=== PATIENT | male | born 1985 | race Caucasian/White ===

== ENCOUNTER 2016-09-07 12:03 | Emergency (ER) | payer SELFPAY ==
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
[2016-09-07] MEDS ORDERED: MORPHINE SULFATE 10 MG/ML INJ IV ONE ×2 (13:44→14:36)
[2016-09-07] MEDS ORDERED: DIPH/PERTUSS(ACELL)/TETANUS VAC/PF 0.5 ML SYR (>=10YO) IM ONE (13:44)
[2016-09-07 14:03] LABS: ABSOLUTE LYMPHOCYTES (AUTO) 2.1 10^3/uL (0.5-4.7); ABSOLUTE MONOCYTES (AUTO) 0.6 10^3/uL (0.1-1.4); ABSOLUTE NEUT (AUTO) 6.2 10^3/uL (1.7-8.2); BASOPHILS % (AUTO) 0.5 % (0-2); EOSINOPHILS % (AUTO) 0.6 % (0-6); HEMATOCRIT 46.5 % (37.9-51.0); HEMOGLOBIN 15.4 g/dL (13.5-17.0); HGB HCT DIFFERENCE -0.3; LYMPHOCYTES % (AUTO) 23.3 % (13-45); MEAN CORPUSCULAR HEMOGLOBIN 29.2 pg (27.0-33.4); MEAN CORPUSCULAR HGB CONC 33.2 g/dL (32.0-36.0); MEAN CORPUSCULAR VOLUME 88 fl (80-97); MONOCYTES % (AUTO) 6.4 % (3-13); RED BLOOD COUNT 5.29 10^6/uL (4.35-5.55); RED CELL DISTRIBUTION WIDTH 13.5 % (11.5-14.0); SEGMENTED NEUTROPHILS % (AUTO) 69.2 % (42-78)
[2016-09-07 14:25] LABS: ALANINE AMINOTRANSFERASE 24 U/L (21-72); ALBUMIN 3.9 g/dL (3.5-5.0); ALKALINE PHOSPHATASE 56 U/L (38-126); ANION GAP 8 (5-19); ASPARTATE AMINO TRANSFERASE 35 U/L (17-59); BILIRUBIN,TOTAL 1.2 mg/dL (0.2-1.3); BLOOD UREA NITROGEN 23 mg/dL (7-20); CALCIUM 9.5 mg/dL (8.4-10.2); CARBON DIOXIDE 29 mmol/L (22-30); CHLORIDE 100 mmol/L (98-107); GLUCOSE 98 mg/dL (75-110); POTASSIUM 4.7 mmol/L (3.6-5.0); SODIUM 137.3 mmol/L (137-145); TOTAL PROTEIN 6.4 g/dL (6.3-8.2)
[2016-09-07] MEDS ORDERED: HYDROMORPHONE HCL INJ/PF 2 MG/ML AMPULE IV ONE (15:38)
[2016-09-07 16:16] VITALS: BP 127/87
[2016-09-07] MEDS ORDERED: NICOTINE 14 MG/24 HR PATCH.TD24 TD ONE (16:26)
== END 2016-09-07 16:15 | disposition short-term general hospital (02) ==
LOC: ER 12:03
DX: S06.5X1A Traumatic subdural hemorrhage with loss of consciousness of 30 minutes or less, initial encounter (principal); S02.0XXA Fracture of vault of skull, initial encounter for closed fracture; S02.81XA Fracture of other specified skull and facial bones, right side, initial encounter for closed fracture; S02.40EA Zygomatic fracture, right side, initial encounter for closed fracture; Y04.2XXA Assault by strike against or bumped into by another person, initial encounter; R51 Headache; M54.2 Cervicalgia; F17.200 Nicotine dependence, unspecified, uncomplicated
CPT/HCPCS: 96376; 99291; 96374; 96375; 36415; 85025; 80053; 70450; 70486; 72125; L0120; J2270; J1170

== ENCOUNTER 2016-09-14 17:04 | Emergency (ER) | payer SELFPAY ==
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
--- NOTE | 2016-09-14 18:46 | ER Document Report ---
Doctor's Note Notes: 09/14/16 18:46 Radiologist called to state that the patient has a 5 mm subdural hematoma right parietal region. The nurse informed that the patient needs a bed
[2016-09-14] MEDS ORDERED: MORPHINE SULFATE 10 MG/ML INJ IV ONE (19:04)
[2016-09-14] MEDS ORDERED: NORMAL SALINE 1000 ML 1,000 ML IV PRN (19:04)
[2016-09-14] MEDS ORDERED: ONDANSETRON HCL INJ/PF 4 MG/2 ML SDV IV ONE (19:04)
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
[2016-09-14] MEDS ORDERED: HYDROMORPHONE HCL INJ/PF 2 MG/ML AMPULE IV ONE (20:06)
[2016-09-14] MEDS ORDERED: DIPHENHYDRAMINE HCL 50 MG/ML VIAL IV ONE (20:06)
[2016-09-14] MEDS ORDERED: DIAZEPAM INJ 10 MG/2 ML DISP.SYRIN IV ONE (21:19)
[2016-09-14] MEDS ORDERED: HYDROCODONE/ACETAMINOPHEN 5-325 MG 6 TAB/DSPK PO PRN (22:09)
[2016-09-14 22:24] VITALS: BP 110/77
== END 2016-09-14 22:34 | disposition home or self-care (01) ==
LOC: ER 17:04
DX: I62.00 Nontraumatic subdural hemorrhage, unspecified (principal); R51 Headache; F17.200 Nicotine dependence, unspecified, uncomplicated
CPT/HCPCS: 99284; 96361; 96374; 96375; 70450; J3360; J1200; J2270; J1170; J2405; J7030

== ENCOUNTER 2018-09-23 19:50 | Emergency (ER) | payer SELFPAY ==
[2018-09-23 20:22] VITALS: BP 128/78
--- NOTE | 2018-09-23 20:29 | RADIOLOGY REPORT (SQ) ---
EXAM DESCRIPTION: XR CHEST 2 VIEWS COMPLETED DATE/TME: 09/23/2018 00:00 CLINICAL HISTORY: 33 years, Male, cough/CP COMPARISON: None. NUMBER OF VIEWS: TECHNIQUE: LIMITATIONS: None. FINDINGS: No evidence of pulmonary infiltrate or pleural effusion. The heart and mediastinum are unremarkable. Pulmonary vascularity appears normal. IMPRESSION: Normal chest x-ray. copyright 2010 [employer]- All Rights Reserved
== END 2018-09-23 21:24 | disposition left against medical advice (07) ==
LOC: ER 19:50
DX: Z53.21 Procedure and treatment not carried out due to patient leaving prior to being seen by health care provider (principal); M79.10 Myalgia, unspecified site
CPT/HCPCS: 71046; 99283

== ENCOUNTER 2018-09-25 16:50 | Emergency (ER) | payer SELFPAY ==
[2018-09-25 16:59] VITALS: BP 128/89
[2018-09-25] MEDS ORDERED: KETOROLAC TROMETHAMINE 60 MG/2 ML SDV IM ONE (17:04)
--- NOTE | 2018-09-25 17:20 | ER Document Report ---
ED General - General Chief Complaint: Chest Wall Pain Stated Complaint: BACK PAIN Time Seen by Provider: 09/25/18 17:01 TRAVEL OUTSIDE OF THE [place] IN LAST 30 DAYS: No - HPI Patient complains to provider of: Left-sided chest wall pain 1 week Notes: Patient coming in for left-sided chest wall pain for 1 week patient denies any medical issues denies any trauma patient otherwise was seen earlier in the week however had to leave before his results could be given to him. Patient states no cough no recent travel otherwise resting healthy upon my evaluation - Related Data Allergies/Adverse Reactions: No Known Allergies Allergy (Verified 09/07/16 12:45) Past Medical History - Social History Smoking Status: Current Every Day Smoker Chew tobacco use (# tins/day): No Frequency of alcohol use: Heavy Drug Abuse: None Family History: Reviewed & Not Pertinent, Malignancy Patient has suicidal ideation: No Patient has homicidal ideation: No Renal/ Medical History: Denies: Hx Peritoneal Dialysis - Immunizations Hx Diphtheria, Pertussis, Tetanus Vaccination: Yes - 2 years ago Review of Systems - Review of Systems Constitutional: No symptoms reported EENT: No symptoms reported Cardiovascular: No symptoms reported Respiratory: Cough Gastrointestinal: No symptoms reported Genitourinary: No symptoms reported Male Genitourinary: No symptoms reported Musculoskeletal: No symptoms reported Skin: No symptoms reported Hematologic/Lymphatic: No symptoms reported Neurological/Psychological: No symptoms reported -: Yes All other systems reviewed and negative Physical Exam - Vital signs Vitals: Temp Pulse Resp BP Pulse Ox 98.1 F 72 16 128/89 H 97 09/25/18 16:58 09/25/18 16:58 09/25/18 16:58 09/25/18 16:58 09/25/18 16:58 Interpretation: Normal - General General appearance: Appears well, Alert - HEENT Head: Normocephalic, Atraumatic Eyes: Normal Pupils: PERRL - Respiratory Respiratory status: No respiratory distress Chest status: Nontender Breath sounds: Normal Chest palpation: Normal - Cardiovascular Rhythm: Regular Heart sounds: Normal auscultation Murmur: No - Abdominal Inspection: Normal Distension: No distension Bowel sounds: Normal Tenderness: Nontender Organomegaly: No organomegaly - Back Back: Normal, Nontender - Extremities General upper extremity: Normal inspection, Nontender, Normal color, Normal ROM, Normal temperature General lower extremity: Normal inspection, Nontender, Normal color, Normal ROM, Normal temperature, Normal weight bearing. No: Steve's sign - Neurological Neuro grossly intact: Yes Cognition: Normal Orientation: AAOx4 Evel[place] Coma Scale Eye Opening: Spontaneous Evelina Coma Scale Verbal: Oriented [place] Coma Scale Motor: Obeys Commands [place] Coma Scale Total: 15 Speech: Normal Motor strength normal: LUE, RUE, LLE, RLE Sensory: Normal - Psychological Associated symptoms: Normal affect, Normal mood - Skin Skin Temperature: Warm Skin Moisture: Dry Skin Color: Normal Course - Re-evaluation Re-evalutation: 09/25/18 19:36 Chest x-ray reviewed patient will be discharged home. EKG does not show any acute pathology. The patient has atypical chest pain as the patient's chest pain is not suggestive of pulmonary embolus, cardiac ischemia, aortic dissection, or other serious etiology. Given the extremely low risk of these diagnoses further testing and evaluation for these possibilities does not appear to be indicated at this time. The patient has been instructed to return if the symptoms worsen or change in any way. - Vital Signs Vital signs: Temp Pulse Resp BP Pulse Ox 98.1 F 72 16 128/89 H 97 09/25/18 16:58 09/25/18 16:58 09/25/18 16:58 09/25/18 16:58 09/25/18 16:58 Discharge - Discharge Clinical Impression: Chest wall pain Condition: Good Disposition: HOME, SELF-CARE Instructions: Anti-Inflammatory Medication ([facility]), Chest Wall Pain ([facility]) Additional Instructions: Chest x-ray laboratory studies not show any critical findings at this time. Will recommend she follow-up with her primary care physician take Tylenol and anti-inflammatory medications such as the ketorolac prescribed for your pain control Prescriptions: Ketorolac Tromethamine [Toradol 10 mg Tablet] 10 mg PO Q8HP PRN #20 tablet PRN Reason: Forms: Return to Work
--- NOTE | 2018-09-25 17:50 | EKG REPORT ---
SEVERITY:- NORMAL ECG - SINUS RHYTHM ST ELEV, PROBABLE NORMAL EARLY REPOL PATTERN : Confirmed by: Gabino Bernstein MD 25-Sep-2018 17:48:54
== END 2018-09-25 17:28 | disposition home or self-care (01) ==
LOC: ER 16:50
DX: R07.89 Other chest pain (principal); M54.9 Dorsalgia, unspecified; R05 Cough; F17.200 Nicotine dependence, unspecified, uncomplicated
CPT/HCPCS: 93005; 99283; 96372; 93010; J1885

== ENCOUNTER 2018-11-20 20:37 | Inpatient (IN) | payer SELFPAY ==
[2018-11-20] MEDS ORDERED: NORMAL SALINE 1000 ML 1,000 ML IV ONE (20:59)
[2018-11-20] MEDS ORDERED: DIAZEPAM INJ 10 MG/2 ML DISP.SYRIN IV ONE ×3 (20:59→23:58)
--- NOTE | 2018-11-20 21:02 | ER Document Report ---
ED Medical Screen (RME) - General Chief Complaint: Alcohol Withdrawl Stated Complaint: CHEST PAINS Time Seen by Provider: 11/20/18 20:55 Notes: 33-year-old male with a history of very heavy daily alcohol use, chief complaint of alcohol withdrawals. Did not drink almost for the past 2 days, trying to quit. He has started vomiting, vomited several times, did vomit a little bit of blood, denies vomiting perez blood. He has been retching today. He states he has become very tremulous. Never had alcohol withdrawals before. Denies recreational drugs or daily medications. TRAVEL OUTSIDE OF THE [place] IN LAST 30 DAYS: No - Related Data Allergies/Adverse Reactions: No Known Allergies Allergy (Verified 09/07/16 12:45) Past Medical History Renal/ Medical History: Denies: Hx Peritoneal Dialysis - Immunizations Hx Diphtheria, Pertussis, Tetanus Vaccination: Yes - 2 years ago Physical Exam - Vital signs Vitals: Temp Pulse Resp BP Pulse Ox 98.1 F 121 H 18 139/91 H 98 11/20/18 20:47 11/20/18 20:47 11/20/18 20:47 11/20/18 20:47 11/20/18 20:47 - General In distress: Moderate - Patient extremely tremulous, tachycardic, ill-appearing - Cardiovascular Rhythm: Regular, Tachycardia Heart sounds: Normal auscultation, S1 appreciated, S2 appreciated Course - Re-evaluation Re-evalutation: Patient is extremely tremulous, tachycardic, ill-appearing. Consistent with alcohol withdrawals. Triaged to level 2, called for a room. - Vital Signs Vital signs: Temp Pulse Resp BP Pulse Ox 98.1 F 121 H 18 139/91 H 98 11/20/18 20:47 11/20/18 20:47 11/20/18 20:47 11/20/18 20:47 11/20/18 20:47
[2018-11-20 21:19] LABS: ABSOLUTE LYMPHOCYTES (AUTO) 0.7 10^3/uL (0.5-4.7); ABSOLUTE MONOCYTES (AUTO) 0.4 10^3/uL (0.1-1.4); ABSOLUTE NEUT (AUTO) 5.8 10^3/uL (1.7-8.2); BASOPHILS % (AUTO) 0.4 % (0-2); EOSINOPHILS % (AUTO) 0.1 % (0-6); HEMATOCRIT 47.9 % (37.9-51.0); HEMOGLOBIN 17.3 g/dL (13.5-17.0); LYMPHOCYTES % (AUTO) 10.6 % (13-45); MEAN CORPUSCULAR HEMOGLOBIN 31.8 pg (27.0-33.4); MEAN CORPUSCULAR HGB CONC 36.1 g/dL (32.0-36.0); MEAN CORPUSCULAR VOLUME 88 fl (80-97); MONOCYTES % (AUTO) 5.3 % (3-13); PLATELET COUNT 155 10^3/uL (150-450); RED BLOOD COUNT 5.44 10^6/uL (4.35-5.55); RED CELL DISTRIBUTION WIDTH 13.9 % (11.5-14.0); SEGMENTED NEUTROPHILS % (AUTO) 83.6 % (42-78); TOTAL CELLS COUNTED % (AUTO) 100 %; WHITE BLOOD COUNT 6.9 10^3/uL (4.0-10.5)
[2018-11-20 21:35] LABS: ALANINE AMINOTRANSFERASE 411 U/L (21-72); ALBUMIN 4.8 g/dL (3.5-5.0); ALKALINE PHOSPHATASE 120 U/L (38-126); ANION GAP 16 (5-19); ASPARTATE AMINO TRANSFERASE 511 U/L (17-59); BILIRUBIN,DIRECT 0.5 mg/dL (0.0-0.4); BILIRUBIN,TOTAL 1.6 mg/dL (0.2-1.3); BLOOD UREA NITROGEN 21 mg/dL (7-20); CALCIUM 10.6 mg/dL (8.4-10.2); CARBON DIOXIDE 22 mmol/L (22-30); CHLORIDE 96 mmol/L (98-107); GLUCOSE 89 mg/dL (75-110); LIPASE 235.7 U/L (23-300); POTASSIUM 4.7 mmol/L (3.6-5.0); SODIUM 133.8 mmol/L (137-145); TOTAL PROTEIN 7.8 g/dL (6.3-8.2)
[2018-11-20 21:36] LABS: ALCOHOL < 10 mg/dL (NONE DETECTED)
--- NOTE | 2018-11-20 21:51 | RADIOLOGY REPORT (SQ) ---
EXAM DESCRIPTION: XR CHEST 1 VIEW COMPLETED DATE/TME: 11/20/2018 21:00 CLINICAL HISTORY: 33 years, Male, Vomiting, retching, alcohol abuse Comparison: None FINDINGS: No focal lung consolidation. No pleural effusion. No pneumothorax. Cardiac and mediastinal silhouette is unremarkable. No acute osseous abnormality. Soft tissues are unremarkable. IMPRESSION: No acute findings. No focal lung consolidation.
[2018-11-20] MEDS ORDERED: METOCLOPRAMIDE HCL INJ/PF 10 MG/2 ML SDV IV ONE (23:19)
[2018-11-20] MEDS ORDERED: MAG HYDROX/AL HYDROX/SIMETH SUSP 30 ML UDCUP PO ONE (23:19)
[2018-11-20] MEDS ORDERED: LIDOCAINE 2% VISCOUS SOLN 20 ML UDCUP PO ONE (23:19)
[2018-11-20] MEDS ORDERED: FAMOTIDINE 20 MG TABLET PO ONE (23:20)
--- NOTE | 2018-11-20 23:23 | ER Document Report ---
ED General - General Chief Complaint: Alcohol Withdrawl Stated Complaint: CHEST PAINS Time Seen by Provider: 11/20/18 20:55 Notes: Patient is a 33-year-old male with a past medical history of chronic alcohol abuse, denies any other chronic medical problems, presents complaining of shaking, tremulousness, instability with gait, nausea, vomiting and chest discomfort since discontinuing alcohol just over 48 hours ago. Patient states that prior to this he was drinking approximate 1 gallon of hard beer daily usually 9% alcohol. The patient reports that he had been drinking this quantity for at least 3-4 months and prior to that had been more of a whiskey drinker. States that he discontinued alcohol as he no longer wants to be intoxicated chronically. States that initially for the first 12-18 hours he was doing fine but then relatively quickly developed moderate to severe symptoms of shaking, tremulousness, body aches and then began having vomiting. Reports after multiple episodes of vomiting he began developing a burning, throbbing pain in his left chest and epigastrium. Nothing seemed to improve or worsen his symptoms at home. He has never had alcohol withdrawal in the past. He denies visual hallucinations. He does not have a primary care doctor. TRAVEL OUTSIDE OF THE [place] IN LAST 30 DAYS: No - Related Data Allergies/Adverse Reactions: No Known Allergies Allergy (Verified 09/07/16 12:45) Past Medical History - General Information source: Patient, Relative - Social History Smoking Status: Current Every Day Smoker Frequency of alcohol use: Heavy Drug Abuse: Marijuana Lives with: Spouse/Significant other Family History: Reviewed & Not Pertinent, Malignancy Patient has suicidal ideation: No Patient has homicidal ideation: No Renal/ Medical History: Denies: Hx Peritoneal Dialysis - Immunizations Hx Diphtheria, Pertussis, Tetanus Vaccination: Yes - 2 years ago Review of Systems - Review of Systems Notes: Constitutional: Negative for fever. HENT: Negative for sore throat. Eyes: Negative for visual changes. Cardiovascular: Positive for chest pain. Respiratory: Negative for shortness of breath. Gastrointestinal: Positive for abdominal pain nausea and vomiting Genitourinary: Negative for dysuria. Musculoskeletal: Negative for back pain. Skin: Negative for rash. Neurological: Positive for tremulousness 10 point ROS negative except as marked above and in HPI. Physical Exam - Vital signs Vitals: Temp Pulse Resp BP Pulse Ox 98.1 F 121 H 18 139/91 H 98 11/20/18 20:47 11/20/18 20:47 11/20/18 20:47 11/20/18 20:47 11/20/18 20:47 Interpretation: Tachycardic Notes: PHYSICAL EXAMINATION: GENERAL: Appears moderately ill but in no acute distress HEAD: Atraumatic, normocephalic. EYES: Pupils equal round and reactive to light, extraocular movements intact, sclera anicteric, conjunctiva are normal. ENT: nares patent, oropharynx clear without exudates. Dry mucous membranes. NECK: Normal range of motion, supple without lymphadenopathy LUNGS: Breath sounds clear to auscultation bilaterally and equal. No wheezes rales or rhonchi. HEART: Regular tachycardia without murmurs ABDOMEN: Soft, nontender, normoactive bowel sounds. No guarding, no rebound. No masses appreciated. EXTREMITIES: Normal range of motion, no pitting or edema. No cyanosis. NEUROLOGICAL: No focal neurological deficits. Moves all extremities spontaneously and on command. Tremulous PSYCH: Moderately anxious SKIN: Warm, Dry, normal turgor, no rashes or lesions noted. Course - Re-evaluation Re-evalutation: 11/20/18 23:21 Patient presents with signs and symptoms consistent with acute alcohol withdrawal. Patient is quite tremulous, moderately tachycardic although not severely hypertensive. Alert, oriented, no evidence of delirium. Patient is s everely tremulous. Will continue to give excluding doses of benzodiazepine to help control his tachycardia and tremulousness. In regards the patient's chest pain: Presentation of chest pain in an otherwise well appearing patient. Low clinical suspicion for ACS given clinical history, exam, EKG without ST elevations or depressions, and negative initial troponin. HEART score less than or equal to 3. PE also seems unlikely given clinical history, absence of pleuritic pain or shortness of breath. Patient does have a history of an upper extremity DVT but his chest pain did start after repeated e pisodes of vomiting, appears to be esophageal in origin and I do not believe repeat CT of the chest will be appropriate. CXR without evidence of pneumothorax, esophageal perforation or pneumonia. No widened mediastinum. Aortic dissection also seems unlikely given history, symmetric pulses, CXR, and vitals. 11/21/18 00:49 Patient has received 30 of diazepam IV, 10 additional milligrams have been ordered. He remains tachycardic into the 120s, tremulous and remains obviously uncomfortable. Given the amount of diazepam that the patient has received I believe he will require hospitalization. Will discuss with Dr. Purdy. - Vital Signs Vital signs: Temp Pulse Resp BP Pulse Ox 98.1 F 121 H 19 114/71 98 11/20/18 20:47 11/20/18 20:47 11/21/18 02:20 11/21/18 02:20 11/21/18 02:20 - Laboratory Result Diagrams: 11/20/18 21:06 11/20/18 21:06 Laboratory results interpreted by me: 11/20/18 11/20/18 11/21/18 21:06 21:06 01:15 Hgb 17.3 H MCHC 36.1 H Seg Neutrophils % 83.6 H Lymphocytes % 10.6 L Sodium 133.8 L Chloride 96 L BUN 21 H Calcium 10.6 H Total Bilirubin 1.6 H Direct Bilirubin 0.5 H AST 511 H ALT 411 H Urine Glucose (UA) 50 H Urine Ketones 80 H Urine Blood SMALL H - Diagnostic Test Radiology reviewed: Image reviewed, Reports reviewed Radiology results interpreted by me: 11/20/18 23:23 Chest x-ray: No acute infiltrate or pneumothorax - EKG Interpretation by Me Additional EKG results interpreted by me: 11/20/18 23:23 Sinus tachycardia, rate 105. No ST elevations or depressions. QTC is 466. Discharge - Discharge Clinical Impression: Alcohol withdrawal Qualifiers: Complication of substance-induced condition: with unspecified complication Q ualified Code(s): F10.239 - Alcohol dependence with withdrawal, unspecified Nausea and vomiting Qualifiers: Vomiting type: unspecified Vomiting Intractability: non-intractable Qualified Code(s): R11.2 - Nausea with vomiting, unspecified Chest pain Qualifiers: Chest pain type: unspecified Qualified Code(s): R07.9 - Chest pain, unspecified Condition: Fair Disposition: ADMITTED OBSERVATION Admitting Provider: Hospitalist Unit Admitted: Telemetry
[2018-11-21] MEDS ORDERED: DIAZEPAM INJ 10 MG/2 ML DISP.SYRIN IV ONE (00:48)
[2018-11-21] MEDS ORDERED: NORMAL SALINE 1000 ML 1,000 ML IV ONE (00:49)
[2018-11-21] MEDS ORDERED: ALBUTEROL SULFATE 0.083% NEB 2.5 MG/3 ML AMPUL NEB PRN (01:31)
[2018-11-21] MEDS ORDERED: SUCRALFATE 1 GM TABLET PO ONE (01:38)
[2018-11-21] MEDS ORDERED: METHYLPREDNISOLONE INJ 125 MG/2 ML SDV IV ONE (01:38)
[2018-11-21 01:43] LABS: APPEARANCE,URINE CLEAR; BILIRUBIN,URINE NEGATIVE (NEGATIVE); COLOR,URINE YELLOW; GLUCOSE, URINE 50 mg/dL (NEGATIVE); KETONES,URINE 80 mg/dL (NEGATIVE); LEUKOCYTE ESTERASE,URINE NEGATIVE (NEGATIVE); NITRITE,URINE NEGATIVE (NEGATIVE); PROTEIN,URINE NEGATIVE (NEGATIVE); URINE SPECIFIC GRAVITY 1.023; UROBILINOGEN,URINE NEGATIVE mg/dL (<2.0)
[2018-11-21] MEDS ORDERED: LORAZEPAM INJ 2 MG/1 ML VIAL IV ONE ×2 (01:45→06:30)
[2018-11-21] MEDS ORDERED: FOLIC ACID INJ 5 MG/1 ML 10 ML VIAL IV ONE (01:45)
[2018-11-21] MEDS ORDERED: NICOTINE 7 MG/24 HR PATCH.TD24 TD ONE (01:45)
[2018-11-21 01:51] LABS: PROTHROMBIN TIME 12.6 SEC (11.4-15.4)
[2018-11-21 01:56] LABS: URINE AMPHETAMINES SCREEN NEGATIVE; URINE BARBITURATES SCREEN NEGATIVE; URINE BENZODIAZEPINES SCREEN UNCONFIRMED POSITIVE; URINE COCAINE SCREEN NEGATIVE; URINE MARIJUANA (THC) SCREEN NEGATIVE; URINE METHADONE SCREEN NEGATIVE; URINE PHENCYCLIDINE SCREEN NEGATIVE
[2018-11-21] MEDS ORDERED: THIAMINE HCL 100 MG TABLET PO ONE (02:00)
[2018-11-21] MEDS: NORMAL SALINE 1000 ML 1,000 ML IV PRN ×2 (03:24→09:29)
[2018-11-21] MEDS: PANTOPRAZOLE SODIUM 20 MG TABLET.DR PO SCH (05:54)
[2018-11-21] MEDS: HEPARIN SOD (PORCINE) 5,000 UNIT/ML 1 ML SYRINGE SUBCUT SCH ×3 (05:55→22:07)
[2018-11-21] MEDS ORDERED: HALOPERIDOL LACTATE INJ 5 MG/1 ML VIAL IV ONE (06:06)
--- NOTE | 2018-11-21 06:14 | PDOC H&P ---
History of Present Illness Admission Date/PCP: 11/21/18 01:20 Patient complains of: Abdominal pain History of Present Illness: KAT FLORES is a 33 year old male with a past medical history of severe alcohol and tobacco dependence. Presenting with 5 days of epigastric pain prompting discontinuation of alcohol 48 hours ago. In the emergency department he is found to have epigastric pain, elevated LFTs suggestive of alcoholic hepatitis and acute alcohol withdrawal with confusion, hallucination, tachycardia despite 40 mg of IV Valium and 8 mg of IV Ativan. He is referred to the hospitalist for admission. Past Medical History Psychiatric Medical History: Reports: Depression Social History Information Source: Patient Lives with: Spouse/Significant other Smoking Status: Current Every Day Smoker Cigarettes Packs Per Day: 1 Number of Years Smokin Last Time Smoked: 11/20/2018 Frequency of Alcohol Use: Heavy Hx Recreational Drug Use: Yes Drugs: Marijuana Hx Prescription Drug Abuse: No - denies - Advance Directive Resuscitation Status: Full Code Family History Family History: Malignancy Parental Family History Reviewed: Yes Children Family History Reviewed: Yes Sibling(s) Family History Reviewed.: Yes Medication/Allergy Home Medications: No Home Medications 11/21/18 Allergies/Adverse Reactions: No Known Allergies Allergy (Verified 09/07/16 12:45) Review of Systems ROS unobtainable: Due to mental status Physical Exam Vital Signs: Temp Pulse Resp BP Pulse Ox 97.7 F 99 17 120/76 98 11/21/18 03:33 11/21/18 03:33 11/21/18 03:33 11/21/18 03:33 11/21/18 03:33 Intake & Output 11/19/18 11/20/18 11/21/18 11:59 11:59 11:59 Intake Total 1999 Balance 1999 Weight 68.4 kg General appearance: PRESENT: cooperative, severe distress, thin Head exam: PRESENT: atraumatic, normocephalic Eye exam: PRESENT: conjunctiva pink, EOMI, PERRLA. ABSENT: scleral icterus Ear exam: PRESENT: normal external ear exam Mouth exam: PRESENT: moist, tongue midline Neck exam: ABSENT: carotid bruit, JVD, lymphadenopathy, thyromegaly Respiratory exam: PRESENT: clear to auscultation tanai. ABSENT: rales, rhonchi, wheezes Cardiovascular exam: PRESENT: +S1, +S2, tachycardia. ABSENT: systolic murmur Pulses: PRESENT: normal dorsalis pedis pul Vascular exam: PRESENT: normal capillary refill GI/Abdominal exam: PRESENT: normal bowel sounds, soft, tenderness - Epigastric, other - Hepatomegaly. ABSENT: distended, guarding, mass, organolmegaly, rebound Rectal exam: PRESENT: deferred Extremities exam: PRESENT: full ROM. ABSENT: calf tenderness, clubbing, pedal edema Neurological exam: PRESENT: alert, awake, oriented to person, oriented to place, CN II-XII grossly intact. ABSENT: motor sensory deficit Psychiatric exam: PRESENT: anxious, manic, unusual affect Skin exam: PRESENT: dry, intact, warm. ABSENT: cyanosis, rash Results Laboratory Results: 11/20/18 21:06 11/20/18 21:06 11/20/18 11/20/18 11/20/18 21:06 21:06 21:06 WBC 6.9 RBC 5.44 Hgb 17.3 H Hct 47.9 MCV 88 MCH 31.8 MCHC 36.1 H RDW 13.9 Plt Count 155 Seg Neutrophils % 83.6 H Lymphocytes % 10.6 L Monocytes % 5.3 Eosinophils % 0.1 Basophils % 0.4 Absolute Neutrophils 5.8 Absolute Lymphocytes 0.7 Absolute Monocytes 0.4 Absolute Eosinophils 0.0 Absolute Basophils 0.0 Sodium 133.8 L Potassium 4.7 Chloride 96 L Carbon Dioxide 22 Anion Gap 16 BUN 21 H Creatinine 0.82 Est GFR ( Amer) > 60 Est GFR (Non-Af Amer) > 60 Glucose 89 Calcium 10.6 H Total Bilirubin 1.6 H AST 511 H ALT 411 H Alkaline Phosphatase 120 Total Protein 7.8 Albumin 4.8 Lipase 235.7 TSH 1.28 Urine Color Urine Appearance Urine pH Ur Specific Cades Urine Protein Urine Glucose (UA) Urine Ketones Urine Blood Urine Nitrite Ur Leukocyte Esterase Urine WBC (Auto) Urine RBC (Auto) 11/21/18 01:15 WBC RBC Hgb Hct MCV MCH MCHC RDW Plt Count Seg Neutrophils % Lymphocytes % Monocytes % Eosinophils % Basophils % Absolute Neutrophils Absolute Lymphocytes Absolute Monocytes Absolute Eosinophils Absolute Basophils Sodium Potassium Chloride Carbon Dioxide Anion Gap BUN Creatinine Est GFR ( Amer) Est GFR (Non-Af Amer) Glucose Calcium Total Bilirubin AST ALT Alkaline Phosphatase Total Protein Albumin Lipase TSH Urine Color YELLOW Urine Appearance CLEAR Urine pH 5.0 Ur Specific Cades 1.023 Urine Protein NEGATIVE Urine Glucose (UA) 50 H Urine Ketones 80 H Urine Blood SMALL H Urine Nitrite NEGATIVE Ur Leukocyte Esterase NEGATIVE Urine WBC (Auto) 1 Urine RBC (Auto) 1 11/20/18 21:06 Troponin I < 0.012 Impressions: Chest X-Ray 11/20/18 21:00 IMPRESSION: No acute findings. No focal lung consolidation. Assessment and Plan - Diagnosis (1) Alcoholic hepatitis Is this a current diagnosis for this admission?: Yes Plan: Highly suggested by history, follow-up hepatitis profile, thiamine, folate, f ollow-up LFTs. Consider steroids (2) Alcoholic gastritis Is this a current diagnosis for this admission?: Yes Plan: Carafate and proton pump inhibitor (3) Abdominal pain Is this a current diagnosis for this admission?: Yes Plan: Secondary to alcoholic gastritis. Proton pump inhibitor initiated (4) Alcohol withdrawal Qualifiers: Complication of substance-induced condition: with unspecified complication Qualified Code(s): F10.239 - Alcohol dependence with withdrawal, unspecified Is this a current diagnosis for this admission?: Yes Plan: Patient still directable after 40 mg of Valium and 8 mg of Ativan over 6 hours. May require IV Ativan. Supportive measures - Time Time Spent with patient: 35 or more minutes - Inpatient Certification Medical Necessity: Need Close Monitoring Due to Risk of Patient Decompensation
--- NOTE | 2018-11-21 07:39 | EKG REPORT ---
SEVERITY:- ABNORMAL ECG - SINUS TACHYCARDIA PROBABLE INFEROLATERAL INFARCT, AGE INDETERM CONSIDER ANTERIOR INFARCT : Confirmed by: Gabion Bernstein MD 21-Nov-2018 07:38:29
[2018-11-21 08:01] LABS: ALANINE AMINOTRANSFERASE 291 U/L (21-72); ALBUMIN 3.5 g/dL (3.5-5.0); ALKALINE PHOSPHATASE 96 U/L (38-126); ANION GAP 7 (5-19); ASPARTATE AMINO TRANSFERASE 271 U/L (17-59); BILIRUBIN,DIRECT 0.3 mg/dL (0.0-0.4); BILIRUBIN,TOTAL 1.1 mg/dL (0.2-1.3); BLOOD UREA NITROGEN 23 mg/dL (7-20); CALCIUM 9.1 mg/dL (8.4-10.2); CARBON DIOXIDE 23 mmol/L (22-30); CHLORIDE 104 mmol/L (98-107); GLUCOSE 201 mg/dL (75-110); POTASSIUM 4.1 mmol/L (3.6-5.0); SODIUM 133.5 mmol/L (137-145); TOTAL PROTEIN 6.1 g/dL (6.3-8.2)
[2018-11-21] MEDS: NICOTINE 7 MG/24 HR PATCH.TD24 TD SCH (09:14)
[2018-11-21] MEDS: LORAZEPAM INJ 2 MG/1 ML VIAL IV SCH ×3 (09:14→22:08)
[2018-11-21] MEDS: THIAMINE HCL 100 MG TABLET PO SCH (09:15)
[2018-11-21] MEDS ORDERED: FOLIC ACID INJ 5 MG/1 ML 10 ML VIAL IV SCH (10:00)
[2018-11-21] MEDS: FOLIC ACID 1 MG TABLET PO SCH (12:12)
--- NOTE | 2018-11-21 18:01 | Progress Note ---
Provider Note Provider Note: Patient had just woken up from a nap whenever I saw him this morning. He did not appear to be in any acute withdrawal symptoms. He has not had an appetite yet. He said he plans on going to AA once he gets out of the hospital. We will continue to monitor him overnight and use as needed medication in the event of withdrawal symptoms.
[2018-11-22] MEDS: LORAZEPAM INJ 2 MG/1 ML VIAL IV SCH ×4 (00:17→15:26)
[2018-11-22 05:50] LABS: ABSOLUTE EOSINOPHILS # (AUTO) 0.1 10^3/uL (0.0-0.6); ABSOLUTE LYMPHOCYTES (AUTO) 1.8 10^3/uL (0.5-4.7); ABSOLUTE MONOCYTES (AUTO) 0.7 10^3/uL (0.1-1.4); ABSOLUTE NEUT (AUTO) 6.5 10^3/uL (1.7-8.2); BASOPHILS % (AUTO) 0.1 % (0-2); EOSINOPHILS % (AUTO) 0.7 % (0-6); HEMATOCRIT 42.9 % (37.9-51.0); LYMPHOCYTES % (AUTO) 19.6 % (13-45); MEAN CORPUSCULAR HEMOGLOBIN 31.6 pg (27.0-33.4); MEAN CORPUSCULAR HGB CONC 34.8 g/dL (32.0-36.0); MEAN CORPUSCULAR VOLUME 91 fl (80-97); MONOCYTES % (AUTO) 7.4 % (3-13); PLATELET COUNT 115 10^3/uL (150-450); RED BLOOD COUNT 4.72 10^6/uL (4.35-5.55); RED CELL DISTRIBUTION WIDTH 13.9 % (11.5-14.0); SEGMENTED NEUTROPHILS % (AUTO) 72.2 % (42-78); TOTAL CELLS COUNTED % (AUTO) 100 %
[2018-11-22 05:56] LABS: HEMOGLOBIN 14.9 g/dL (13.5-17.0)
[2018-11-22 06:12] LABS: ALANINE AMINOTRANSFERASE 257 U/L (21-72); ALBUMIN 3.6 g/dL (3.5-5.0); ALKALINE PHOSPHATASE 83 U/L (38-126); ANION GAP 5 (5-19); ASPARTATE AMINO TRANSFERASE 198 U/L (17-59); BILIRUBIN,DIRECT 0.3 mg/dL (0.0-0.4); BILIRUBIN,TOTAL 1.1 mg/dL (0.2-1.3); BLOOD UREA NITROGEN 13 mg/dL (7-20); CALCIUM 9.3 mg/dL (8.4-10.2); CARBON DIOXIDE 26 mmol/L (22-30); CHLORIDE 106 mmol/L (98-107); GLUCOSE 114 mg/dL (75-110); POTASSIUM 3.3 mmol/L (3.6-5.0); SODIUM 137.2 mmol/L (137-145); TOTAL PROTEIN 6.2 g/dL (6.3-8.2)
[2018-11-22] MEDS: PANTOPRAZOLE SODIUM 20 MG TABLET.DR PO SCH (06:27)
[2018-11-22] MEDS: HEPARIN SOD (PORCINE) 5,000 UNIT/ML 1 ML SYRINGE SUBCUT SCH ×2 (06:28→13:07)
[2018-11-22 07:42] LABS: HEPATITIS A AB IGM Negative (Negative); HEPATITIS B CORE AB IGM Negative (Negative); HEPATITS B SURFACE ANTIGEN Negative (Negative)
[2018-11-22] MEDS: THIAMINE HCL 100 MG TABLET PO SCH (09:14)
[2018-11-22] MEDS: FOLIC ACID 1 MG TABLET PO SCH (09:14)
[2018-11-22] MEDS: NICOTINE 7 MG/24 HR PATCH.TD24 TD SCH (09:14)
[2018-11-22] MEDS ORDERED: POTASSIUM CHLORIDE 20 MEQ/15 ML UDCUP PO ONE (09:50)
[2018-11-22] MEDS ORDERED: POTASSI CL 20 MEQ/NS 1L 1,000 ML IV PRN (10:21)
[2018-11-22 10:28] LABS: HEPATITIS C VIRUS ANTIBODY <0.1 s/co ratio (0.0-0.9)
[2018-11-22] MEDS ORDERED: MAG HYDROX/AL HYDROX/SIMETH SUSP 30 ML UDCUP PO ONE (11:00)
[2018-11-22] MEDS ORDERED: OXYCODONE HCL IR 5 MG TABLET PO ONE (11:30)
[2018-11-22 11:57] VITALS: BP 112/82
--- NOTE | 2018-11-22 21:57 | PDOC DISCHARGE SUMMARY ---
General - Admit/Disc Date/PCP Admission Date/Primary Care Provider: 11/21/18 01:20 Discharge Date: 11/22/18 - Discharge Diagnosis (1) Hypokalemia Is this a current diagnosis for this admission?: Yes Summary: Serum potassium supplemented by mouth and with intravenous potassium chloride. Possibly related to GI losses. (2) Abdominal pain Is this a current diagnosis for this admission?: Yes Summary: Patient reports vomiting. The abdominal pain could also been related to an acute alcohol hepatitis. (3) Alcohol withdrawal Is this a current diagnosis for this admission?: Yes Summary: It has been 7 days since his last drink. We will continue benzodiazepine therapy as an outpatient. I strongly encourage participation in a support group such as Alcoholics Anonymous. (4) Alcoholic gastritis Is this a current diagnosis for this admission?: Yes Summary: Continue proton pump inhibitor therapy (5) Alcoholic hepatitis Is this a current diagnosis for this admission?: Yes Summary: Transaminases improving. Strongly encourage cessation of alcohol. (6) Nausea and vomiting Is this a current diagnosis for this admission?: Yes Summary: Improved. Encourage adequate fluid intake after discharge. - Additional Information Resuscitation Status: Full Code Discharge Diet: Regular Discharge Activity: Activity As Tolerated, Balance Activity w/Rest Prescriptions: Chlordiazepoxide HCl 25 mg PO Q4HP PRN 7 Days #20 capsule PRN Reason: Anxiety Pantoprazole Sodium [Protonix [address] Tablet] 20 mg PO Q6AM 30 Days #30 tablet. Thiamine HCl [Thiamine 100 mg Tablet] 100 mg PO DAILY 30 Days #30 tablet Home Medications: Chlordiazepoxide HCl 25 mg PO Q4HP PRN 7 Days #20 capsule 11/22/18 Folic Acid [Folvite 1 mg Tablet] 1 mg PO DAILY tablet 11/22/18 Nicotine [Nicoderm 7 mg/24 Hr Transdermal Patch] 1 each TD DAILY patch.td24 11/22/18 Pantoprazole Sodium [Protonix [address] Tablet] 20 mg PO Q6AM 30 Days #30 tablet. 11/22/18 Thiamine HCl [Thiamine 100 mg Tablet] 100 mg PO DAILY 30 Days #30 tablet 11/22/18 History of Present Illness Patient complains of: Abdominal pain with acute alcohol withdrawal History of Present Illness: KAT FLORES is a 33 year old male with a history of alcohol and tobacco dependence. He reports having his last drink approximately 2-3 days prior to admission. He discontinued alcohol because of increased abdominal pain with nausea and vomiting. He also presented with confusion and hallucinations as well as tachycardia. His transaminases were elevated and he was referred to the hospitalist service for admission. Hospital Course Hospital Course: With ongoing IV fluids and aggressive benzodiazepine therapy the patient is improved. He is minimally tremulous. He is quite fatigued and still has abdominal discomfort. Today's potassium was found to be slightly decreased in oral as well as intravenous potassium were provided. He will receive another liter of fluid prior to discharge. He had a relatively unremarkable hospital course. Physical Exam Vital Signs: Temp Pulse Resp BP Pulse Ox 97.7 F 80 12 114/78 98 11/22/18 08:22 11/22/18 09:53 11/22/18 09:53 11/22/18 08:22 11/22/18 09:53 Intake & Output 11/21/18 11/22/18 11/23/18 06:59 06:59 06:59 Intake Total 1999 3142 Output Total 950 Balance 1999 2191 Weight 68.4 kg General appearance: PRESENT: no acute distress, cooperative, thin Head exam: PRESENT: atraumatic, normocephalic Eye exam: PRESENT: conjunctiva pink. ABSENT: scleral icterus Mouth exam: PRESENT: moist, tongue midline Respiratory exam: PRESENT: clear to auscultation tania, symmetrical, unlabored. ABSENT: rales, rhonchi, wheezes Cardiovascular exam: PRESENT: RRR, +S1, +S2. ABSENT: systolic murmur GI/Abdominal exam: PRESENT: normal bowel sounds, soft, tenderness - Epigastric. ABSENT: distended Rectal exam: PRESENT: deferred Gentrourinary exam: ABSENT: indwelling catheter Extremities exam: ABSENT: calf tenderness, pedal edema Neurological exam: PRESENT: awake, oriented to person, oriented to place, oriented to situation. ABSENT: alert - Still somewhat sleepy Psychiatric exam: PRESENT: flat affect. ABSENT: agitated, anxious Focused psych exam: ABSENT: delusional, restlessness Results Laboratory Results: 11/22/18 04:23 11/22/18 04:23 11/22/18 11/22/18 04:23 04:23 WBC 9.0 RBC 4.72 Hgb 14.9 D Hct 42.9 MCV 91 MCH 31.6 MCHC 34.8 RDW 13.9 Plt Count 115 L Seg Neutrophils % 72.2 Lymphocytes % 19.6 Monocytes % 7.4 Eosinophils % 0.7 Basophils % 0.1 Absolute Neutrophils 6.5 Absolute Lymphocytes 1.8 Absolute Monocytes 0.7 Absolute Eosinophils 0.1 Absolute Basophils 0.0 Sodium 137.2 Potassium 3.3 L Chloride 106 Carbon Dioxide 26 Anion Gap 5 BUN 13 Creatinine 0.76 Est GFR ( Amer) > 60 Est GFR (Non-Af Amer) > 60 Glucose 114 H Calcium 9.3 Total Bilirubin 1.1 AST 198 H ALT 257 H Alkaline Phosphatase 83 Total Protein 6.2 L Albumin 3.6 11/20/18 21:06 Troponin I < 0.012 Impressions: Chest X-Ray 11/20/18 21:00 IMPRESSION: No acute findings. No focal lung consolidation. Qualifiers - * PATIENT BEING DISCHARGED WITH ANY OF THE FOLLOWING DIAGNOSIS: No Plan Discharge Plan: Patient needs to establish with primary care provider. I did provide chlordiazepoxide with instructions on a taper over the next 5-6 days. Also encourage participation in a program such as Alcoholics Anonymous. The staff is going to provide information to the patient at discharge. He is strongly encouraged not to resume drinking alcohol or smoking. Time Spent: Greater than 30 Minutes
== END 2018-11-22 15:52 | disposition home or self-care (01) | DRG 897 ==
LOC: ER 20:37 → OBSVTOIN 11-21 01:20 → EH 11-21 01:20 → 4N 11-21 03:00
PROVIDERS: ADMIT Internal Medicine; ATTEND Internal Medicine
DX: F10.239 Alcohol dependence with withdrawal, unspecified (principal); K70.10 Alcoholic hepatitis without ascites; E87.6 Hypokalemia; K29.20 Alcoholic gastritis without bleeding; F17.200 Nicotine dependence, unspecified, uncomplicated
CPT/HCPCS: 36415; 71045; 80053; 80074; 80307; 81001; 83690; 84443; 84484; 85025; 85610; 93005; 93010; 96361; 96374; 96375; 96376; 99285; J1630; J1644; J2060; J2765; J2930; J3360; J3480; J3490; J7030

== ENCOUNTER 2019-02-13 10:23 | Emergency (ER) | payer SELFPAY ==
--- NOTE | 2019-02-13 12:52 | ER Document Report ---
ED Medical Screen (RME) - General Chief Complaint: Chest Pain Stated Complaint: CHEST PAIN Time Seen by Provider: 02/13/19 12:46 TRAVEL OUTSIDE OF THE [place] IN LAST 30 DAYS: No - HPI Notes: 02/13/19 12:50 Patient is a 33-year-old male who presents complaining of left-sided chest pain that began around 2 AM about an hour after he snorted a small amount of meth. Patient states that it was his first time. Patient states that the pain is to the left chest left arm and the left back. Denies SIMPSON, fever, neck pain, URI, Abd pain, dysuria, back pain, or rash. I have treated and performed a rapid initial assessment of this patient. A comprehensive ED assessment and evaluation of the patient, analysis of test results and completion of medical decision making process will be conducted by additional ED providers. PHYSICAL EXAMINATION: GENERAL: Well-appearing, well-nourished and in no acute distress. A&Ox4. Answers questions appropriately. LUNGS: Breath sounds clear to auscultation bilaterally and equal. No wheezes rales or rhonchi. HEART: Regular rate and rhythm without murmurs, rubs, gallops. HR 94 on EKG Extremities: No cyanosis, clubbing, or edema b/l. Steve negative bilaterally. No lower extremity asymmetry. NEUROLOGICAL: Normal speech, normal gait. PSYCH: Normal mood, normal affect. - Related Data Allergies/Adverse Reactions: No Known Allergies Allergy (Verified 09/07/16 12:45) Past Medical History Renal/ Medical History: Denies: Hx Peritoneal Dialysis Psychiatric Medical History: Reports: Hx Depression - Immunizations Hx Diphtheria, Pertussis, Tetanus Vaccination: Yes - 2 years ago Physical Exam - Vital signs Vitals: Temp Pulse Resp BP Pulse Ox 98.4 F 124 H 20 150/84 H 99 02/13/19 10:37 02/13/19 10:37 02/13/19 10:37 02/13/19 10:37 02/13/19 10:37 Course - Vital Signs Vital signs: Temp Pulse Resp BP Pulse Ox 98.4 F 124 H 20 150/84 H 99 02/13/19 10:37 02/13/19 10:37 02/13/19 10:37 02/13/19 10:37 02/13/19 10:37
[2019-02-13] MEDS ORDERED: HYDROXYZINE PAMOATE 25 MG CAPSULE PO ONE (12:53)
[2019-02-13 13:41] LABS: ABSOLUTE BASOPHILS # (AUTO) 0.1 10^3/uL (0.0-0.2); ABSOLUTE LYMPHOCYTES (AUTO) 2.2 10^3/uL (0.5-4.7); ABSOLUTE MONOCYTES (AUTO) 0.5 10^3/uL (0.1-1.4); BASOPHILS % (AUTO) 0.5 % (0-2); EOSINOPHILS % (AUTO) 0.1 % (0-6); HEMATOCRIT 46.4 % (37.9-51.0); HEMOGLOBIN 16.2 g/dL (13.5-17.0); MEAN CORPUSCULAR HEMOGLOBIN 30.6 pg (27.0-33.4); MEAN CORPUSCULAR HGB CONC 34.8 g/dL (32.0-36.0); MEAN CORPUSCULAR VOLUME 88 fl (80-97); MONOCYTES % (AUTO) 4.2 % (3-13); PLATELET COUNT 309 10^3/uL (150-450); RED BLOOD COUNT 5.29 10^6/uL (4.35-5.55); RED CELL DISTRIBUTION WIDTH 13.4 % (11.5-14.0); SEGMENTED NEUTROPHILS % (AUTO) 76.2 % (42-78); TOTAL CELLS COUNTED % (AUTO) 100 %; WHITE BLOOD COUNT 11.8 10^3/uL (4.0-10.5)
[2019-02-13 13:44] LABS: APPEARANCE,URINE CLEAR; BILIRUBIN,URINE NEGATIVE (NEGATIVE); COLOR,URINE STRAW; GLUCOSE, URINE NEGATIVE (NEGATIVE); KETONES,URINE 20 mg/dL (NEGATIVE); LEUKOCYTE ESTERASE,URINE NEGATIVE (NEGATIVE); NITRITE,URINE NEGATIVE (NEGATIVE); PROTEIN,URINE NEGATIVE (NEGATIVE); URINE SPECIFIC GRAVITY 1.005; UROBILINOGEN,URINE NEGATIVE mg/dL (<2.0)
[2019-02-13 13:59] LABS: ALANINE AMINOTRANSFERASE 23 U/L (21-72); ALBUMIN 5.1 g/dL (3.5-5.0); ALKALINE PHOSPHATASE 99 U/L (38-126); ANION GAP 13 (5-19); ASPARTATE AMINO TRANSFERASE 29 U/L (17-59); BILIRUBIN,DIRECT 0.4 mg/dL (0.0-0.4); BILIRUBIN,TOTAL 1.6 mg/dL (0.2-1.3); BLOOD UREA NITROGEN 12 mg/dL (7-20); CALCIUM 10.3 mg/dL (8.4-10.2); CARBON DIOXIDE 26 mmol/L (22-30); CHLORIDE 99 mmol/L (98-107); GLUCOSE 86 mg/dL (75-110); POTASSIUM 3.9 mmol/L (3.6-5.0); SODIUM 137.7 mmol/L (137-145); TOTAL PROTEIN 8.4 g/dL (6.3-8.2)
[2019-02-13 14:10] LABS: URINE BARBITURATES SCREEN NEGATIVE; URINE BENZODIAZEPINES SCREEN NEGATIVE; URINE COCAINE SCREEN NEGATIVE; URINE MARIJUANA (THC) SCREEN UNCONFIRMED POSITIVE; URINE METHADONE SCREEN NEGATIVE; URINE PHENCYCLIDINE SCREEN NEGATIVE
[2019-02-13 14:11] LABS: NT PRO BNP 177 pg/mL (<125)
[2019-02-13 14:14] LABS: TROPONIN I < 0.012 ng/mL
--- NOTE | 2019-02-13 14:18 | RADIOLOGY REPORT (SQ) ---
EXAM DESCRIPTION: CHEST SINGLE VIEW COMPLETED DATE/TIME: 02/13/2019 2:10 pm REASON FOR STUDY: CP COMPARISON: 11/20/2018. EXAM PARAMETERS: NUMBER OF VIEWS: One view. TECHNIQUE: Single frontal radiographic view of the chest acquired. RADIATION DOSE: NA LIMITATIONS: None. FINDINGS: LUNGS AND PLEURA: No opacities, masses or pneumothorax. No pleural effusion. MEDIASTINUM AND HILAR STRUCTURES: No masses. Contour normal. HEART AND VASCULAR STRUCTURES: Heart normal in size. Normal vasculature. BONES: No acute findings. HARDWARE: None in the chest. OTHER: No other significant finding. IMPRESSION: NO ACUTE RADIOGRAPHIC FINDING IN THE CHEST. TECHNICAL DOCUMENTATION: JOB ID: [id number] [employer]- All Rights Reserved Reading location - IP/workstation name: [email or web address]
[2019-02-13] MEDS ORDERED: LORAZEPAM INJ 2 MG/1 ML VIAL IV ONE (16:27)
--- NOTE | 2019-02-13 16:33 | ER Document Report ---
ED General - General Chief Complaint: Chest Pain Stated Complaint: CHEST PAIN Time Seen by Provider: 02/13/19 12:46 TRAVEL OUTSIDE OF THE [place] IN LAST 30 DAYS: No - HPI Notes: Patient is a 33-year-old gentleman who presents to the emergency department for evaluation of tightness in his chest. It all started within a moment of snorting crystal meth for the first time. He describes a tightness across his entire chest and some associated shortness of breath. He denies any nausea, diaphoresis, near syncope. He denies use of any other drugs. He admits to drinking heavily frequently, but "less than he used to." He had been hospitalized in the past for severe alcohol withdrawal. - Related Data Allergies/Adverse Reactions: No Known Allergies Allergy (Verified 09/07/16 12:45) Past Medical History - General Information source: Patient - Social History Smoking Status: Current Every Day Smoker Chew tobacco use (# tins/day): No Frequency of alcohol use: Occasional Drug Abuse: Marijuana, Methamphetamine - First used today Family History: Malignancy. denies: CAD Patient has suicidal ideation: No Patient has homicidal ideation: No Renal/ Medical History: Denies: Hx Peritoneal Dialysis Psychiatric Medical History: Reports: Hx Depression - Immunizations Hx Diphtheria, Pertussis, Tetanus Vaccination: Yes - 2 years ago Review of Systems - Review of Systems Constitutional: No symptoms reported EENT: No symptoms reported Cardiovascular: See HPI Respiratory: No symptoms reported Gastrointestinal: No symptoms reported Genitourinary: No symptoms reported Musculoskeletal: No symptoms reported Skin: No symptoms reported Neurological/Psychological: No symptoms reported Physical Exam - Vital signs Vitals: Temp Pulse Resp BP Pulse Ox 98.4 F 124 H 20 150/84 H 99 02/13/19 10:37 02/13/19 10:37 02/13/19 10:37 02/13/19 10:37 02/13/19 10:37 - Notes Notes: Anxious appearing male, no acute distress. Vital signs reviewed, please refer to chart. Head is normocephalic, atraumatic. Pupils equal round, reactive to light. Neck is supple without meningismus. Heart is regular rate and rhythm. Lungs are clear to auscultation bilaterally. Abdomen is soft, nontender, normoactive bowel sounds throughout. Extremities without cyanosis, clubbing. Posterior calves are nontender. Peripheral pulses are equal. Skin is warm and dry. Patient is awake, alert, neurological exam is nonfocal. Course - Re-evaluation Re-evalutation: 02/13/19 16:32 Patient presents emergency department for evaluation. His laboratory investigation was largely unremarkable, including an only indeterminant troponin. His symptoms seem more consistent with anxiety. His drug screen is in fact negative for any methamphetamine. I strongly suspect this is all anxie ty driven. He was given Ativan here. EKG and remainder of labs are unremarkable. Patient was reminded that he should abstain from the use of all illegal drugs, as well as cut down on his alcohol use. He voiced understanding to this and was discharged. - Vital Signs Vital signs: Temp Pulse Resp BP Pulse Ox 98.4 F 124 H 20 150/84 H 99 02/13/19 10:37 02/13/19 10:37 02/13/19 10:37 02/13/19 10:37 02/13/19 10:37 - Laboratory Result Diagrams: 02/13/19 13:15 02/13/19 13:15 Laboratory results interpreted by me: 02/13/19 02/13/19 02/13/19 13:15 13:15 13:15 WBC 11.8 H Absolute Neutrophils 9.0 H Calcium 10.3 H Total Bilirubin 1.6 H NT-Pro-B Natriuret Pep 177 H Total Protein 8.4 H Albumin 5.1 H Urine Ketones Urine Blood 02/13/19 13:22 WBC Absolute Neutrophils Calcium Total Bilirubin NT-Pro-B Natriuret Pep Total Protein Albumin Urine Ketones 20 H Urine Blood SMALL H - Diagnostic Test Radiology results interpreted by me: 02/13/19 16:33 Chest X-Ray 02/13/19 12:52 IMPRESSION: NO ACUTE RADIOGRAPHIC FINDING IN THE CHEST. - EKG Interpretation by Me Additional EKG results interpreted by me: 02/13/19 16:33 Sinus mechanism with a rate of 94 bpm. Normal axis and intervals, nonspecific ST changes, but no acute changes concerning for infarction. Unchanged when compared to prior study November 20, 2018. Discharge - Discharge Clinical Impression: Anxiety, Polysubstance abuse Chest pain Qualifiers: Chest pain type: unspecified Qualified Code(s): R07.9 - Chest pain, unspecified Condition: Stable Disposition: HOME, SELF-CARE Instructions: Chest Pain of Unclear Cause ([facility]) Additional Instructions: Abstain from the use of illegal drugs. Cut down your alcohol use. Follow-up with primary care this week. If you develop worsening or new concerning symptoms of any sort, return immediately to the emergency department for reevaluation.
[2019-02-13] MEDS ORDERED: LORAZEPAM INJ 2 MG/1 ML VIAL IM ONE (16:44)
[2019-02-13 16:49] VITALS: BP 128/84
--- NOTE | 2019-02-13 22:55 | EKG REPORT ---
SEVERITY:- BORDERLINE ECG - SINUS RHYTHM BORDERLINE INFERIOR Q WAVES : Confirmed by: Archana Amin 13-Feb-2019 22:54:45
== END 2019-02-13 16:51 | disposition home or self-care (01) ==
LOC: ER 10:23
DX: R07.9 Chest pain, unspecified (principal); F41.9 Anxiety disorder, unspecified; R06.02 Shortness of breath; F12.10 Cannabis abuse, uncomplicated; F19.10 Other psychoactive substance abuse, uncomplicated; F10.10 Alcohol abuse, uncomplicated; F17.200 Nicotine dependence, unspecified, uncomplicated
CPT/HCPCS: 93005; 99285; 96372; 36415; 85025; 80053; 81001; 84484; 80307; 83880; 71045; 93010; J2060

== ENCOUNTER 2019-03-15 05:59 | Inpatient (IN) | payer SELFPAY ==
[2019-03-15] MEDS ORDERED: NORMAL SALINE 1000 ML 1,000 ML IV ONE ×2 (06:01→08:05)
[2019-03-15] MEDS ORDERED: LORAZEPAM INJ 2 MG/1 ML VIAL IV ONE ×2 (06:01→14:55)
[2019-03-15] MEDS ORDERED: LORAZEPAM INJ 2 MG/1 ML VIAL ONE (06:01)
[2019-03-15] MEDS ORDERED: DIAZEPAM INJ 10 MG/2 ML DISP.SYRIN IV ONE (06:01)
--- NOTE | 2019-03-15 06:04 | ER Document Report ---
ED Medical Screen (RME) - General Stated Complaint: SEIZURE/CHEST PAIN Time Seen by Provider: 03/15/19 06:01 Notes: 34-year-old male with a history of alcoholism chief complaint of alcohol withdrawals. He states he has not had a drink today, he became extremely tremul ous. He denies vomiting. He states he has had seizures with withdrawals before. Patient came in the front of the hospital, we responded to this, patient was extremely tremulous, patient did appear to have a seizure which lasted approximately 30 seconds and then resolved. Patient was slightly postictal afterwards. However after the seizure he became extremely tremulous again, he is tachycardic, appears to be having delirium tremens with alcohol withdrawal. TRAVEL OUTSIDE OF THE [place] IN LAST 30 DAYS: No - Related Data Allergies/Adverse Reactions: No Known Allergies Allergy (Verified 09/07/16 12:45) Past Medical History Renal/ Medical History: Denies: Hx Peritoneal Dialysis Psychiatric Medical History: Reports: Hx Depression - Immunizations Hx Diphtheria, Pertussis, Tetanus Vaccination: Yes - 2 years ago Physical Exam - General General appearance: Other - Pale, diaphoretic, extremely tremulous, ill- appearing
[2019-03-15 06:15] LABS: ABSOLUTE BASOPHILS # (AUTO) 0.1 10^3/uL (0.0-0.2); ABSOLUTE EOSINOPHILS # (AUTO) 0.1 10^3/uL (0.0-0.6); ABSOLUTE LYMPHOCYTES (AUTO) 4.4 10^3/uL (0.5-4.7); ABSOLUTE MONOCYTES (AUTO) 0.5 10^3/uL (0.1-1.4); ABSOLUTE NEUT (AUTO) 4.9 10^3/uL (1.7-8.2); BASOPHILS % (AUTO) 0.8 % (0-2); EOSINOPHILS % (AUTO) 0.8 % (0-6); HEMATOCRIT 49.9 % (37.9-51.0); HEMOGLOBIN 17.2 g/dL (13.5-17.0); LYMPHOCYTES % (AUTO) 44.3 % (13-45); MEAN CORPUSCULAR HEMOGLOBIN 30.7 pg (27.0-33.4); MEAN CORPUSCULAR HGB CONC 34.5 g/dL (32.0-36.0); MEAN CORPUSCULAR VOLUME 89 fl (80-97); MONOCYTES % (AUTO) 4.9 % (3-13); PLATELET COUNT 256 10^3/uL (150-450); RED CELL DISTRIBUTION WIDTH 14.7 % (11.5-14.0); SEGMENTED NEUTROPHILS % (AUTO) 49.2 % (42-78); TOTAL CELLS COUNTED % (AUTO) 100 %; WHITE BLOOD COUNT 9.9 10^3/uL (4.0-10.5)
[2019-03-15 06:33] LABS: ALANINE AMINOTRANSFERASE 33 U/L (21-72); ALBUMIN 4.7 g/dL (3.5-5.0); ALCOHOL 181 mg/dL (NONE DETECTED); ALKALINE PHOSPHATASE 127 U/L (38-126); ASPARTATE AMINO TRANSFERASE 41 U/L (17-59); BILIRUBIN,DIRECT 0.4 mg/dL (0.0-0.4); BLOOD UREA NITROGEN 17 mg/dL (7-20); CALCIUM 9.3 mg/dL (8.4-10.2); GLUCOSE 75 mg/dL (75-110); POTASSIUM 4.1 mmol/L (3.6-5.0); TOTAL PROTEIN 7.6 g/dL (6.3-8.2)
[2019-03-15 06:38] LABS: CARBON DIOXIDE 14 mmol/L (22-30); CHLORIDE 100 mmol/L (98-107)
[2019-03-15 06:40] LABS: ANION GAP 23 (5-19)
[2019-03-15] MEDS ORDERED: DEXTROSE 5%-LACTATED RINGERS 1,000 ML IV ONE ×2 (06:58→08:53)
[2019-03-15] MEDS ORDERED: THIAMINE HCL INJ 200 MG/2 ML VIAL IV ONE (06:58)
[2019-03-15 07:17] LABS: CREATINE KINASE 103 U/L (55-170)
[2019-03-15 07:30] LABS: CREATINE KINASE MB 0.62 ng/mL (<4.55)
[2019-03-15 07:35] LABS: TROPONIN I < 0.012 ng/mL
--- NOTE | 2019-03-15 08:04 | ER Document Report ---
Entered by JNAELLE RANDALL SCRIBE 03/15/19 0657 Acting as scribe for:DONNA QUINTERO MD ED General - General Stated Complaint: SEIZURE/CHEST PAIN Time Seen by Provider: 03/15/19 06:01 Mode of Arrival: Ambulatory Information source: Patient, [facility] Records Notes: Patient is a 34-year-old male who presents to the emergency department today for complaints that he "could not function". When asked to elaborate patient states he is trying to stop drinking and has cut himself back from drinking anywhere from a pint to a fifth of whiskey daily to now drinking beer to "slowly stop". Patient states he was dropped off at work this morning and he "walked straight here". Patient states he is was having "difficulty walking down the sidewalk". Patient states his heart has been pounding, he has been shaking, and he has been unable to sleep. Patient states he has never been to a detox facility the past, as he always thought he could do it on his own. Patient states the longest he has stopped drinking is a few months. I first saw the patient about 6:15 AM. About 6 AM, he was given Valium 10 mg IV, followed by Ativan 4 mg IV according to the notes and records I can review. See the nurse's notes placed at 6:30 AM about what transpired prior to me seeing the patient. TRAVEL OUTSIDE OF THE [place] IN LAST 30 DAYS: No - Related Data Allergies/Adverse Reactions: No Known Allergies Allergy (Verified 09/07/16 12:45) Past Medical History - General Information source: Patient - Social History Smoking Status: Current Every Day Smoker Cigarette use (# per day): Yes Frequency of alcohol use: Heavy Occupation: [employer] Family History: Malignancy. denies: CAD Renal/ Medical History: Denies: Hx Peritoneal Dialysis Psychiatric Medical History: Reports: Hx Depression - Immunizations Hx Diphtheria, Pertussis, Tetanus Vaccination: Yes - 2 years ago Review of Systems - Review of Systems Constitutional: See HPI, Other - "couldn't function", complains of alchol withdrawal EENT: No symptoms reported Cardiovascular: See HPI, Palpitations, Heart racing Respiratory: No symptoms reported Gastrointestinal: No symptoms reported Genitourinary: No symptoms reported Male Genitourinary: No symptoms reported Musculoskeletal: No symptoms reported Skin: No symptoms reported Hematologic/Lymphatic: No symptoms reported Neurological/Psychological: No symptoms reported -: Yes All other systems reviewed and negative Physical Exam - Vital signs Vitals: Resp Pulse Ox 18 93 03/15/19 06:01 03/15/19 06:01 - Notes Notes: Physical Exam: General: Alert, appears well. HEENT: Normocephalic. Atraumatic. PERRL. Extraocular movements intact. Oropharynx clear. Mouth dry. Neck: Supple. Non-tender. Respiratory: No respiratory distress. Clear and equal breath sounds bilaterally. Anterior chest wall is quite tender to palpate, especially the lower half of the anterior chest wall bilaterally. Cardiovascular: Regular rate and rhythm. Tachycardia. No murmurs heard. Abdominal: Normal Inspection. Non-tender. No distension. Normal Bowel Sounds. Back: Non-tender. Extremities: Moves all four extremities. Upper extremities: Normal inspection. Normal ROM. Lower extremities: Normal inspection. No edema. Normal ROM. Neurological: Normal cognition. AAOx4. Psychological: Patient is intoxicated. Does seem a little depressed. Skin: Warm. Dry. Normal color. Course - Re-evaluation Re-evalutation: 03/15/19 13:31 At this time the patient's alcohol level would be about 30mg% based on the level when he first came in the emergency room. He is not tachycardic. He is not showing symptoms of alcohol withdrawal. 03/15/19 13:37 Reviewing records shows the patient did have markedly elevated liver transaminases when he was admitted on 11/20/2018 with alcohol abuse. Today his transaminases are in the low normal range. When attempting to discharge patient, I had him stand up and he was noted to have some tremors and his heart rate went to 135-140 range. - Vital Signs Vital signs: Temp Pulse Resp BP Pulse Ox 98.4 F 17 138/75 H 93 03/15/19 06:15 03/15/19 14:18 03/15/19 14:18 03/15/19 14:18 - Laboratory Result Diagrams: 03/15/19 06:05 03/15/19 06:05 Laboratory results interpreted by me: 03/15/19 03/15/19 03/15/19 06:05 06:05 08:46 RBC 5.60 H Hgb 17.2 H RDW 14.7 H Carbon Dioxide 14 L Anion Gap 23 H Alkaline Phosphatase 127 H Urine Glucose (UA) >=500 H Urine Ketones 80 H Urine Blood SMALL H - Diagnostic Test Radiology reviewed: Image reviewed, Reports reviewed - Chest x-ray is unremarkable. - EKG Interpretation by Me EKG shows normal: Sinus rhythm, Phelps, Intervals, QRS Complexes, ST-T Waves Rate: Tachycardia - 138 Phelps/QRS: RBBB When compared to previous EKG there are: Changes noted - Consults SADAF Felipe Time consulted: 14:55 Consulted provider: will come to ER Discharge - Discharge Clinical Impression: Chronic alcohol abuse, Anterior chest wall pain Acute alcohol intoxication Qualifiers: Complication of substance-induced condition: uncomplicated Qualified Code(s): F10.920 - Alcohol use, unspecified with intoxication, uncomplicated Contusion of ribs Qualifiers: Encounter type: initial encounter Laterality: unspecified laterality Qualified Code(s): S20.219A - Contusion of unspecified front wall of thorax, initial encounter Alcohol withdrawal Qualifiers: Complication of substance-induced condition: with unspecified complication Qualified Code(s): F10.239 - Alcohol dependence with withdrawal, unspecified Condition: Good Disposition: ADMITTED INPATIENT Admitting Provider: Aimee (Hospitalist) Unit Admitted: Medical Floor Scribe Attestation: 03/15/19 07:01 I personally performed the services described in the documentation, reviewed and edited the documentation which was dictated to the scribe in my presence, and it accurately records my words and actions. I personally performed the services described in the documentation, reviewed and edited the documentation which was dictated to the scribe in my presence, and it accurately records my words and actions.
[2019-03-15 09:15] LABS: APPEARANCE,URINE CLEAR; BILIRUBIN,URINE NEGATIVE (NEGATIVE); COLOR,URINE YELLOW; GLUCOSE, URINE >=500 mg/dL (NEGATIVE); KETONES,URINE 80 mg/dL (NEGATIVE); LEUKOCYTE ESTERASE,URINE NEGATIVE (NEGATIVE); NITRITE,URINE NEGATIVE (NEGATIVE); PROTEIN,URINE NEGATIVE (NEGATIVE); UROBILINOGEN,URINE NEGATIVE mg/dL (<2.0)
[2019-03-15 09:44] LABS: URINE AMPHETAMINES SCREEN NEGATIVE; URINE BARBITURATES SCREEN NEGATIVE; URINE BENZODIAZEPINES SCREEN UNCONFIRMED POSITIVE; URINE COCAINE SCREEN NEGATIVE; URINE MARIJUANA (THC) SCREEN NEGATIVE; URINE METHADONE SCREEN NEGATIVE; URINE PHENCYCLIDINE SCREEN NEGATIVE
--- NOTE | 2019-03-15 14:22 | RADIOLOGY REPORT (SQ) ---
EXAM DESCRIPTION: CHEST SINGLE VIEW COMPLETED DATE/TIME: 03/15/2019 2:09 pm REASON FOR STUDY: Anterior chest pain from fall, alcohol intoxicatio COMPARISON: 02/13/2019 EXAM PARAMETERS: NUMBER OF VIEWS: One view. TECHNIQUE: Single frontal radiographic view of the chest acquired. RADIATION DOSE: NA LIMITATIONS: None. FINDINGS: LUNGS AND PLEURA: No opacities, masses or pneumothorax. No pleural effusion. MEDIASTINUM AND HILAR STRUCTURES: No masses. Contour normal. HEART AND VASCULAR STRUCTURES: Heart normal in size. Normal vasculature. BONES: No acute findings. HARDWARE: None in the chest. OTHER: No other significant finding. IMPRESSION: No acute abnormality of the lungs in AP projection. TECHNICAL DOCUMENTATION: JOB ID: [id number] [facility]- All Rights Reserved Reading location - IP/workstation name: [email or web address]
[2019-03-15] MEDS ORDERED: NORMAL SALINE 1000 ML 1,000 ML IV PRN (15:51)
[2019-03-15] MEDS ORDERED: ONDANSETRON 4 MG TAB.RAPDIS PO PRN (15:51)
[2019-03-15] MEDS ORDERED: ACETAMINOPHEN 325 MG TABLET PO PRN (15:51)
[2019-03-15 15:54] VITALS: BP 141/79
--- NOTE | 2019-03-15 16:12 | Progress Note Acknowledgement ---
Progress Note Acknowledgement Progess Note Acknowledgement: I, the undersigned member of the medical staff with appropriate privileges and with supervisory authority over [ PAC ], a dependent practice allied health professional, acknowledge that I have reviewed the progress notes entered on this patient, and in my professional judgment believe that the assessment made and/or any care evidenced was appropriate
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
[2019-03-15] MEDS ORDERED: LORAZEPAM 1 MG TABLET PO SCH (18:00)
--- NOTE | 2019-03-15 18:19 | Left Against Medical Advice ---
Against Medical Advice Admission Date/Time: 03/15/19 15:07 Primary Care Provider: 03/15/2019 1600 hrs. patient was seen in the emergency room for an admission over 30 minutes was spent with the patient discussing his meeting diagnosis of alcohol abuse patient agreed to come in for IV fluids and medication. 03/15/2019 1800 hrs. patient has signed himself out AMA - Diagnosis: (1) Acute alcohol intoxication Is this a current diagnosis for this admission?: Yes (2) Chronic alcohol abuse Is this a current diagnosis for this admission?: Yes - Summary: Summary: Please see Admission and Progress Notes as well. KAT FLORES is a 34 M, who LEFT AGAINST MEDICAL ADVICE. The Patient was admitted on 03/15/19 15:07.
[2019-03-15] MEDS ORDERED: CLONIDINE HCL 0.1 MG TABLET PO SCH (22:00)
[2019-03-15] MEDS ORDERED: FAMOTIDINE 20 MG TABLET PO SCH (22:00)
--- NOTE | 2019-03-15 23:48 | EKG REPORT ---
SEVERITY:- ABNORMAL ECG - SINUS TACHYCARDIA RIGHT BUNDLE BRANCH BLOCK : Confirmed by: Archana Amin 15-Mar-2019 23:47:24
== END 2019-03-15 16:10 | disposition left against medical advice (07) | DRG 894 ==
LOC: ER 05:59 → EH 15:07
PROVIDERS: ADMIT Internal Medicine; ATTEND Internal Medicine
DX: F10.129 Alcohol abuse with intoxication, unspecified (principal); F17.210 Nicotine dependence, cigarettes, uncomplicated; Z87.828 Personal history of other (healed) physical injury and trauma; R00.0 Tachycardia, unspecified
CPT/HCPCS: 36415; 71045; 80053; 80307; 81001; 82550; 82553; 83690; 83735; 84484; 85025; 93005; 93010; 96361; 96374; 96375; 96376; 99285; J2060; J3360; J3411; J7030; J7121

== ENCOUNTER 2019-03-19 08:01 | Emergency (ER) | payer SELFPAY ==
[2019-03-19] MEDS ORDERED: LORAZEPAM INJ 2 MG/1 ML VIAL ONE (08:06)
[2019-03-19] MEDS ORDERED: NORMAL SALINE 1000 ML 1,000 ML IV ONE (08:13)
[2019-03-19] MEDS ORDERED: THIAMINE HCL 100 MG in NORMAL SALINE 50 ML IV ONE (08:13)
[2019-03-19] MEDS ORDERED: ONDANSETRON HCL INJ/PF 4 MG/2 ML SDV IV ONE (08:15)
[2019-03-19] MEDS ORDERED: LORAZEPAM INJ 2 MG/1 ML VIAL IV ONE (08:17)
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
[2019-03-19 08:34] LABS: ABSOLUTE BASOPHILS # (AUTO) 0.1 10^3/uL (0.0-0.2); ABSOLUTE LYMPHOCYTES (AUTO) 1.2 10^3/uL (0.5-4.7); ABSOLUTE MONOCYTES (AUTO) 0.7 10^3/uL (0.1-1.4); ABSOLUTE NEUT (AUTO) 12.3 10^3/uL (1.7-8.2); BASOPHILS % (AUTO) 0.4 % (0-2); EOSINOPHILS % (AUTO) 0.3 % (0-6); HEMATOCRIT 49.8 % (37.9-51.0); HEMOGLOBIN 17.2 g/dL (13.5-17.0); LYMPHOCYTES % (AUTO) 8.2 % (13-45); MEAN CORPUSCULAR HEMOGLOBIN 30.7 pg (27.0-33.4); MEAN CORPUSCULAR HGB CONC 34.6 g/dL (32.0-36.0); MEAN CORPUSCULAR VOLUME 89 fl (80-97); MONOCYTES % (AUTO) 4.6 % (3-13); PLATELET COUNT 188 10^3/uL (150-450); RED CELL DISTRIBUTION WIDTH 14.8 % (11.5-14.0); SEGMENTED NEUTROPHILS % (AUTO) 86.5 % (42-78); TOTAL CELLS COUNTED % (AUTO) 100 %; WHITE BLOOD COUNT 14.2 10^3/uL (4.0-10.5)
[2019-03-19 08:41] LABS: ALANINE AMINOTRANSFERASE 89 U/L (21-72); ALCOHOL 28 mg/dL (NONE DETECTED); ALKALINE PHOSPHATASE 119 U/L (38-126); ANION GAP 15 (5-19); ASPARTATE AMINO TRANSFERASE 120 U/L (17-59); BILIRUBIN,DIRECT 0.4 mg/dL (0.0-0.4); BILIRUBIN,TOTAL 1.4 mg/dL (0.2-1.3); BLOOD UREA NITROGEN 11 mg/dL (7-20); CALCIUM 9.9 mg/dL (8.4-10.2); CARBON DIOXIDE 23 mmol/L (22-30); CHLORIDE 98 mmol/L (98-107); GLUCOSE 112 mg/dL (75-110); POTASSIUM 4.8 mmol/L (3.6-5.0); TOTAL PROTEIN 8.1 g/dL (6.3-8.2)
[2019-03-19 08:43] LABS: ACETAMINOPHEN < 10 ug/mL (10-30); SALICYLATE < 1.0 mg/dL (2.0-20.0)
[2019-03-19] MEDS ORDERED: FOLIC ACID INJ 5 MG/1 ML 10 ML VIAL IV ONE (10:00)
--- NOTE | 2019-03-19 10:35 | EKG REPORT ---
SEVERITY:- ABNORMAL ECG - SINUS RHYTHM CONSIDER INFERIOR INFARCT : Confirmed by: Archana Amin 19-Mar-2019 10:35:10
[2019-03-19] MEDS ORDERED: NORMAL SALINE 1000 ML 1,000 ML IV PRN (11:26)
[2019-03-19 11:53] VITALS: BP 121/88
[2019-03-19 12:01] LABS: APPEARANCE,URINE CLEAR; BILIRUBIN,URINE NEGATIVE (NEGATIVE); COLOR,URINE YELLOW; GLUCOSE, URINE NEGATIVE (NEGATIVE); KETONES,URINE TRACE mg/dL (NEGATIVE); LEUKOCYTE ESTERASE,URINE NEGATIVE (NEGATIVE); NITRITE,URINE NEGATIVE (NEGATIVE); PROTEIN,URINE NEGATIVE (NEGATIVE); URINE SPECIFIC GRAVITY 1.018; UROBILINOGEN,URINE NEGATIVE mg/dL (<2.0)
[2019-03-19 12:15] LABS: URINE AMPHETAMINES SCREEN NEGATIVE; URINE BARBITURATES SCREEN NEGATIVE; URINE BENZODIAZEPINES SCREEN UNCONFIRMED POSITIVE; URINE COCAINE SCREEN NEGATIVE; URINE MARIJUANA (THC) SCREEN UNCONFIRMED POSITIVE; URINE METHADONE SCREEN NEGATIVE; URINE PHENCYCLIDINE SCREEN NEGATIVE
== END 2019-03-19 13:34 | disposition home or self-care (01) ==
LOC: ER 08:01
DX: F10.239 Alcohol dependence with withdrawal, unspecified (principal); F17.200 Nicotine dependence, unspecified, uncomplicated; R11.0 Nausea; M79.10 Myalgia, unspecified site
CPT/HCPCS: 93005; 99285; 96361; 96375; 96365; 36415; 80307 ×4; 85025; 80053; 81001; 93010; J3490; J2060; J3411; J2405; J7030

== ENCOUNTER 2019-03-22 12:38 | Emergency (ER) | payer SELFPAY ==
[2019-03-22] MEDS ORDERED: MORPHINE SULFATE 10 MG/ML INJ IM ONE (13:47)
[2019-03-22] MEDS ORDERED: ASPIRIN 81 MG TABLET, CHEWABLE PO ONE (13:47)
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
[2019-03-22 14:33] LABS: APPEARANCE,URINE CLEAR; BILIRUBIN,URINE NEGATIVE (NEGATIVE); COLOR,URINE YELLOW; GLUCOSE, URINE NEGATIVE (NEGATIVE); INTERNATIONAL RATION (INR) 0.94; KETONES,URINE 20 mg/dL (NEGATIVE); LEUKOCYTE ESTERASE,URINE NEGATIVE (NEGATIVE); NITRITE,URINE NEGATIVE (NEGATIVE); PROTEIN,URINE 30 mg/dL (NEGATIVE); PROTHROMBIN TIME 12.6 SEC (11.4-15.4); URINE SPECIFIC GRAVITY 1.018; UROBILINOGEN,URINE NEGATIVE mg/dL (<2.0)
[2019-03-22 14:34] LABS: PARTIAL THROMBOPLASTIN TIME 27.9 SEC (23.5-35.8)
[2019-03-22 14:47] LABS: URINE AMPHETAMINES SCREEN NEGATIVE; URINE BARBITURATES SCREEN NEGATIVE; URINE BENZODIAZEPINES SCREEN UNCONFIRMED POSITIVE; URINE COCAINE SCREEN NEGATIVE; URINE MARIJUANA (THC) SCREEN UNCONFIRMED POSITIVE; URINE METHADONE SCREEN NEGATIVE; URINE PHENCYCLIDINE SCREEN NEGATIVE
--- NOTE | 2019-03-22 14:50 | RADIOLOGY REPORT (SQ) ---
EXAM DESCRIPTION: CHEST SINGLE VIEW COMPLETED DATE/TIME: 03/22/2019 2:38 pm REASON FOR STUDY: cp COMPARISON: 03/15/2019 NUMBER OF VIEWS: One view. TECHNIQUE: Single frontal radiographic image of the chest acquired. LIMITATIONS: None. FINDINGS: LUNGS AND PLEURA: Stable appearance. MEDIASTINUM AND HILAR STRUCTURES: Stable heart size and mediastinal structures. HEART AND VASCULAR STRUCTURES: Stable appearance. SUPPORT DEVICES: Appropriate location without change. BONES: No acute findings. OTHER: No other significant finding. IMPRESSION: STABLE APPEARANCE OF THE CHEST. SUPPORT DEVICES UNCHANGED. TECHNICAL DOCUMENTATION: JOB ID: [id number] [employer]- All Rights Reserved Reading location - IP/workstation name: [email or web address]
[2019-03-22 14:52] LABS: CREATINE KINASE 56 U/L (55-170)
[2019-03-22 14:53] LABS: ALCOHOL < 10 mg/dL (NONE DETECTED)
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
[2019-03-22] MEDS ORDERED: NITROGLYCERIN 0.4 MG/TAB 25 TAB/BOTTLE SL PRN (15:04)
[2019-03-22] MEDS ORDERED: LORAZEPAM 1 MG TABLET PO ONE (15:05)
[2019-03-22 15:08] LABS: CREATINE KINASE MB < 0.22 ng/mL (<4.55); TROPONIN I < 0.012 ng/mL
[2019-03-22] MEDS ORDERED: METOCLOPRAMIDE HCL ORAL SOLN 10 MG/10 ML UDCUP PO ONE (15:55)
[2019-03-22] MEDS ORDERED: MAG HYDROX/AL HYDROX/SIMETH SUSP 30 ML UDCUP PO ONE (15:55)
[2019-03-22] MEDS ORDERED: LIDOCAINE 2% VISCOUS SOLN 20 ML UDCUP PO ONE (15:55)
[2019-03-22] MEDS ORDERED: KETOROLAC TROMETHAMINE INJ/PF 30 MG/1 ML SDV IV ONE (17:38)
[2019-03-22] MEDS ORDERED: KETOROLAC TROMETHAMINE 60 MG/2 ML SDV IM ONE (18:03)
[2019-03-22 19:34] VITALS: BP 117/78
--- NOTE | 2019-03-23 09:34 | EKG REPORT ---
SEVERITY:- ABNORMAL ECG - SINUS TACHYCARDIA : Confirmed by: Asiya Gomez MD 22-Mar-2019 21:27:34
== END 2019-03-22 19:25 | disposition home or self-care (01) ==
LOC: ER 12:38
DX: R07.2 Precordial pain (principal); F10.230 Alcohol dependence with withdrawal, uncomplicated; R94.31 Abnormal electrocardiogram [ECG] [EKG]; F17.210 Nicotine dependence, cigarettes, uncomplicated; F12.10 Cannabis abuse, uncomplicated
CPT/HCPCS: 93005; 99285; 96374; 96375; 36415; 82553; 80307 ×2; 82550; 83690; 80178; 85610; 85730; 81001; 84484; 71045; 93010; J1885; J3490; J2270

== ENCOUNTER 2019-06-04 09:56 | Emergency (ER) | payer SELFPAY ==
[2019-06-04] MEDS ORDERED: METHYLPREDNISOLONE INJ 125 MG/2 ML SDV IV ONE (09:58)
[2019-06-04] MEDS ORDERED: EPINEPHRINE INJ/PF 1 MG/1 ML AMPULE IM ONE (09:58)
[2019-06-04] MEDS ORDERED: NORMAL SALINE 1000 ML 1,000 ML IV ONE (09:58)
[2019-06-04] MEDS ORDERED: DIPHENHYDRAMINE HCL 50 MG/ML VIAL IV ONE (09:58)
[2019-06-04] MEDS ORDERED: FAMOTIDINE INJ/PF 20 MG/2 ML SDV IV ONE (09:58)
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
[2019-06-04] MEDS ORDERED: ONDANSETRON HCL INJ/PF 4 MG/2 ML SDV ONE ×2 (10:02→10:24)
[2019-06-04] MEDS ORDERED: EPINEPHRINE INJ/PF 1 MG/1 ML AMPULE ONE (10:07)
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
[2019-06-04 14:10] VITALS: BP 102/69
== END 2019-06-04 14:18 | disposition home or self-care (01) ==
LOC: ER 09:56
DX: T63.441A Toxic effect of venom of bees, accidental (unintentional), initial encounter (principal); L50.9 Urticaria, unspecified; R06.2 Wheezing; R11.0 Nausea; R20.0 Anesthesia of skin; R68.83 Chills (without fever); R00.2 Palpitations; F12.10 Cannabis abuse, uncomplicated; F17.210 Nicotine dependence, cigarettes, uncomplicated; Z71.6 Tobacco abuse counseling
CPT/HCPCS: J1200; J0171; J2930; J2405; J7030; S0028; 96361; 96372; 96374; 96375; 99282; 99406

== ENCOUNTER 2019-07-17 06:52 | Emergency (ER) | payer SELFPAY ==
[2019-07-17] MEDS ORDERED: NORMAL SALINE 1000 ML 1,000 ML IV ONE (07:31)
[2019-07-17] MEDS ORDERED: KETOROLAC TROMETHAMINE INJ/PF 30 MG/1 ML SDV IV ONE (07:31)
[2019-07-17 07:39] LABS: ABSOLUTE BASOPHILS # (AUTO) 0.1 10^3/uL (0.0-0.2); ABSOLUTE LYMPHOCYTES (AUTO) 3.2 10^3/uL (0.5-4.7); ABSOLUTE MONOCYTES (AUTO) 0.7 10^3/uL (0.1-1.4); ABSOLUTE NEUT (AUTO) 6.7 10^3/uL (1.7-8.2); BASOPHILS % (AUTO) 0.7 % (0-2); EOSINOPHILS % (AUTO) 0.4 % (0-6); HEMATOCRIT 45.4 % (37.9-51.0); HEMOGLOBIN 15.9 g/dL (13.5-17.0); LYMPHOCYTES % (AUTO) 30.1 % (13-45); MEAN CORPUSCULAR HGB CONC 34.9 g/dL (32.0-36.0); MEAN CORPUSCULAR VOLUME 86 fl (80-97); MONOCYTES % (AUTO) 6.7 % (3-13); PLATELET COUNT 289 10^3/uL (150-450); RED BLOOD COUNT 5.29 10^6/uL (4.35-5.55); SEGMENTED NEUTROPHILS % (AUTO) 62.1 % (42-78); TOTAL CELLS COUNTED % (AUTO) 100 %; WHITE BLOOD COUNT 10.8 10^3/uL (4.0-10.5)
[2019-07-17 07:59] LABS: ALBUMIN 4.5 g/dL (3.5-5.0); ALKALINE PHOSPHATASE 63 U/L (38-126); ANION GAP 11 (5-19); ASPARTATE AMINO TRANSFERASE 29 U/L (17-59); BILIRUBIN,DIRECT 0.2 mg/dL (0.0-0.4); BILIRUBIN,TOTAL 1.2 mg/dL (0.2-1.3); BLOOD UREA NITROGEN 16 mg/dL (7-20); CALCIUM 9.6 mg/dL (8.4-10.2); CARBON DIOXIDE 25 mmol/L (22-30); CHLORIDE 103 mmol/L (98-107); GLUCOSE 102 mg/dL (75-110); POTASSIUM 4.2 mmol/L (3.6-5.0); TOTAL PROTEIN 7.6 g/dL (6.3-8.2)
[2019-07-17 08:11] LABS: CREATINE KINASE MB 0.49 ng/mL (<4.55)
[2019-07-17 08:21] LABS: TROPONIN I < 0.012 ng/mL
[2019-07-17 08:22] LABS: ALCOHOL 34 mg/dL (NONE DETECTED)
[2019-07-17 08:39] LABS: APPEARANCE,URINE CLEAR; BILIRUBIN,URINE NEGATIVE (NEGATIVE); COLOR,URINE YELLOW; GLUCOSE, URINE NEGATIVE (NEGATIVE); KETONES,URINE TRACE mg/dL (NEGATIVE); LEUKOCYTE ESTERASE,URINE NEGATIVE (NEGATIVE); NITRITE,URINE NEGATIVE (NEGATIVE); PROTEIN,URINE NEGATIVE (NEGATIVE); URINE SPECIFIC GRAVITY 1.021; UROBILINOGEN,URINE NEGATIVE mg/dL (<2.0)
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
[2019-07-17 09:07] LABS: URINE AMPHETAMINES SCREEN NEGATIVE; URINE BARBITURATES SCREEN NEGATIVE; URINE BENZODIAZEPINES SCREEN NEGATIVE; URINE COCAINE SCREEN NEGATIVE; URINE METHADONE SCREEN NEGATIVE; URINE PHENCYCLIDINE SCREEN NEGATIVE
[2019-07-17 09:10] LABS: URINE MARIJUANA (THC) SCREEN UNCONFIRMED POSITIVE
--- NOTE | 2019-07-17 09:50 | RADIOLOGY REPORT (SQ) ---
EXAM DESCRIPTION: CHEST SINGLE VIEW COMPLETED DATE/TIME: 07/17/2019 9:25 am REASON FOR STUDY: Chest pain COMPARISON: Chest films 03/22/2019, 03/15/2019, 11/20/2018 EXAM PARAMETERS: NUMBER OF VIEWS: One view. TECHNIQUE: Single frontal radiographic view of the chest acquired. RADIATION DOSE: NA LIMITATIONS: Two cassettes submitted FINDINGS: LUNGS AND PLEURA: No opacities, masses or pneumothorax. No pleural effusion. MEDIASTINUM AND HILAR STRUCTURES: No masses. Contour normal. HEART AND VASCULAR STRUCTURES: Heart normal in size. Normal vasculature. BONES: No acute findings. HARDWARE: None in the chest. OTHER: No other significant finding. IMPRESSION: NO ACUTE RADIOGRAPHIC FINDING IN THE CHEST. TECHNICAL DOCUMENTATION: JOB ID: [id number] [employer]- All Rights Reserved Reading location - IP/workstation name: [email or web address]
[2019-07-17] MEDS ORDERED: MAG HYDROX/AL HYDROX/SIMETH SUSP 30 ML UDCUP PO ONE (11:22)
[2019-07-17] MEDS ORDERED: LIDOCAINE 2% VISCOUS SOLN 20 ML UDCUP PO ONE (11:22)
[2019-07-17] MEDS ORDERED: FAMOTIDINE INJ/PF 20 MG/2 ML SDV IV ONE (11:23)
[2019-07-17] MEDS ORDERED: LORAZEPAM INJ 2 MG/1 ML VIAL IV ONE (11:23)
[2019-07-17 12:25] VITALS: BP 125/90
--- NOTE | 2019-07-17 23:45 | EKG REPORT ---
SEVERITY:- ABNORMAL ECG - SINUS RHYTHM BORDERLINE INFERIOR Q WAVES BORDERLINE ST ELEVATION, INFERIOR LEADS : Confirmed by: Archana Amin 17-Jul-2019 23:44:39
== END 2019-07-17 12:31 | disposition home or self-care (01) ==
LOC: ER 06:52
DX: K29.20 Alcoholic gastritis without bleeding (principal); F10.10 Alcohol abuse, uncomplicated; R07.89 Other chest pain; R10.10 Upper abdominal pain, unspecified; I45.10 Unspecified right bundle-branch block; F17.210 Nicotine dependence, cigarettes, uncomplicated; Z91.030 Bee allergy status
CPT/HCPCS: 93005; 99285; 96361; 96374; 96375; 36415; 82553; 80307 ×2; 85025; 80053; 81001; 84484; 71045; 93010; J3490; J1885; J2060; J7030; S0028

== ENCOUNTER 2019-12-06 13:17 | Emergency (ER) | payer SELFPAY ==
[2019-12-06 13:25] VITALS: BP 120/71
[2019-12-06] MEDS ORDERED: LIDOCAINE 2% VISCOUS SOLN 15 ML UDCUP PO ONE (13:49)
[2019-12-06] MEDS ORDERED: PENICILLIN V POTASSIUM 500 MG TABLET PO ONE (13:49)
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
== END 2019-12-06 13:50 | disposition home or self-care (01) ==
LOC: ER 13:17
DX: K04.7 Periapical abscess without sinus (principal); K08.89 Other specified disorders of teeth and supporting structures
CPT/HCPCS: 99282; J3490